=== PATIENT | female | born 1995 | race Caucasian/White ===

== ENCOUNTER 2024-12-10 07:49 | Outpatient (CLI) | payer OTHER ==
[2024-12-10 08:43] LABS: BASO % 0.2 % (0.1-1.2); EOS # 0.29 (0.04-0.54); EOS % 3.2 % (0.7-7.0); LYMPH # 1.90 (1.18-3.74); LYMPH % 21.1 % (19.3-53.1); MEAN PLATELET VOLUME 10.50 fl (9.4-12.4); MONO # 0.66 (0.24-0.82); MONO % 7.3 % (4.7-12.5); NEUT # 6.13 (1.56-6.13); NEUT % 68.1 % (34.0-71.1); RED CELL DISTRIBUTION WIDTH 15.6 % (11.6-14.4)
[2024-12-10 08:51] LABS: URINE APPEARANCE Clear; URINE BILIRRUBIN Negative (NEGATIVE); URINE BLOOD Trace; URINE COLOR Yellow; URINE GLUCOSE Negative (NEGATIVE); URINE KETONE Negative (NEGATIVE); URINE LEUKOCYTE Negative; URINE NITRATE Negative; URINE PROTEIN Trace (NEGATIVE); URINE UROBILINOGEN 1.0 E.U./dl
[2024-12-10 08:52] LABS: URINE BACTERIA 341.9 uL (0.0-1933); URINE EPITHELIAL CELLS 3.8 uL (0.0-38.8); URINE RBC 19.9 uL (0.0-20.8); URINE WBC 8.7 uL (0.0-23.2)
[2024-12-10 09:07] LABS: INR 1.01
[2024-12-10 09:10] LABS: COL EPI 139 SECONDS (82-175); URINE CAST 0.43 uL (0.0-1.40)
[2024-12-10 09:11] LABS: ALT/SGPT 15.0 U/L (12-78); AST/SGOT 8.0 U/L (15-37); BILIRUBIN TOTAL 0.25 mg/dL (0.3-1.2); BUN CREA RATIO 14.0 (7.0-25.0); CREATININE SERUM 0.79 mg/dL (0.55-1.02); GFR 86.04; GLOBULINA 3.8 G/DL (2.4-3.5); GLUCOSE FASTING 103.0 mg/dL (65-100); OSMOLALITY SERUM 277.0 MOSM/KG (275-295)
[2024-12-10 09:49] VITALS: BP 105/58
== END 2024-12-10 09:12 | disposition home or self-care (01) ==
LOC: RAD 07:49
PROVIDERS: ATTEND Orthopaedic Surgery
DX: Z76.89 Persons encountering health services in other specified circumstances (principal); D64.9 Anemia, unspecified; E88.9 Metabolic disorder, unspecified; D68.8 Other specified coagulation defects; N39.0 Urinary tract infection, site not specified; E11.8 Type 2 diabetes mellitus with unspecified complications; Z20.822 Contact with and (suspected) exposure to COVID-19; I10 Essential (primary) hypertension

== ENCOUNTER 2025-01-21 06:52 | Outpatient (CLI) | payer OTHER ==
[~2025-01-21] VITALS: Ht 160 cm; Wt 73.0 kg
[2025-01-21 07:42] LABS: BASO % 0.3 % (0.1-1.2); EOS # 0.33 (0.04-0.54); EOS % 3.6 % (0.7-7.0); LYMPH # 2.28 (1.18-3.74); LYMPH % 24.8 % (19.3-53.1); MEAN PLATELET VOLUME 10.10 fl (9.4-12.4); MONO # 0.73 (0.24-0.82); MONO % 8.0 % (4.7-12.5); NEUT # 5.78 (1.56-6.13); NEUT % 63.0 % (34.0-71.1); RED CELL DISTRIBUTION WIDTH 18.5 % (11.6-14.4)
[2025-01-21 07:51] LABS: URINE APPEARANCE Clear; URINE BILIRRUBIN Negative (NEGATIVE); URINE BLOOD Negative; URINE COLOR Yellow; URINE GLUCOSE Negative (NEGATIVE); URINE KETONE Negative (NEGATIVE); URINE LEUKOCYTE Moderate; URINE NITRATE Negative; URINE PROTEIN Negative (NEGATIVE); URINE UROBILINOGEN 1.0 E.U./dl
[2025-01-21 07:52] LABS: URINE BACTERIA 2852.3 uL (0.0-1933); URINE EPITHELIAL CELLS 96.4 uL (0.0-38.8); URINE RBC 29.1 uL (0.0-20.8); URINE WBC 21.3 uL (0.0-23.2)
[2025-01-21 08:15] LABS: URINE CAST 0.73 uL (0.0-1.40)
[2025-01-21 08:27] LABS: COL EPI 126 SECONDS (82-175)
[2025-01-21 08:37] LABS: ALT/SGPT 17.0 U/L (12-78); AST/SGOT 10.0 U/L (15-37); BILIRUBIN TOTAL 0.62 mg/dL (0.3-1.2); BUN CREA RATIO 11.0 (7.0-25.0); CREATININE SERUM 0.74 mg/dL (0.55-1.02); GFR 92.78; GLOBULINA 3.7 G/DL (2.4-3.5); GLUCOSE FASTING 93.0 mg/dL (65-100); OSMOLALITY SERUM 276.0 MOSM/KG (275-295)
[2025-01-21 08:39] VITALS: BP 107/66
[2025-01-21 08:42] LABS: INR 1.02
== END 2025-01-21 13:26 | disposition home or self-care (01) ==
LOC: LAB 06:52
PROVIDERS: ATTEND Orthopaedic Surgery
DX: D68.8 Other specified coagulation defects (principal); E88.9 Metabolic disorder, unspecified; D64.9 Anemia, unspecified; N39.0 Urinary tract infection, site not specified; Z22.322 Carrier or suspected carrier of Methicillin resistant Staphylococcus aureus; E11.9 Type 2 diabetes mellitus without complications; I10 Essential (primary) hypertension

== ENCOUNTER 2025-01-27 08:49 | Inpatient (IN) | payer OTHER ==
[~2025-01-27] VITALS: Ht 160 cm; Wt 73.0 kg
[2025-01-28] MEDS ORDERED: BUPIVACAINE HCL 30 ML VIAL IJ ONE (13:45)
[2025-01-28] MEDS ORDERED: KETOROLAC TROMETHAMINE 30 MG VIAL IV ONE (13:45)
[2025-01-28] MEDS ORDERED: EPINEPHRINE HCL/PF 1 MG/ML AMPUL IR ONE (14:00)
[2025-01-28] MEDS ORDERED: CEFAZOLIN SODIUM 1,000 MG VIAL IV SCH ×2 (14:00→17:00)
[2025-01-28] MEDS ORDERED: VANCOMYCIN HCL 1,000 MG VIAL IR ONE (14:00)
[2025-01-28] MEDS ORDERED: LIDOCAINE HCL 1%/EPINEPHRINE 20ML VIAL IJ ONE (14:00)
[2025-01-28] MEDS ORDERED: MORPHINE SULFATE 4 MG/ML CARTRIDGE IV ONE (14:00)
[2025-01-28] MEDS ORDERED: TRANEXAMIC ACID 100MG/1ML (1000MG) AMPUL IV ONE ×2 (14:00)
[2025-01-28] MEDS ORDERED: SUGAMMADEX SODIUM 200 MG/2 ML VIAL IV ONE (15:00)
[2025-01-28] MEDS ORDERED: PROMETHAZINE HCL 50 MG/ML AMPUL IM PRN (16:15)
[2025-01-28] MEDS ORDERED: ONDANSETRON 4 MG TAB.RAPDIS PO PRN (16:15)
[2025-01-28] MEDS ORDERED: TRAMADOL HCL 50 MG TABLET PO PRN (16:15)
[2025-01-28] MEDS ORDERED: ONDANSETRON HCL 2 MG/ML VIAL IV PRN (16:15)
[2025-01-28] MEDS ORDERED: MEPERIDINE HCL/PF 50 MG/ML VIAL IM PRN (16:15)
[2025-01-28] MEDS ORDERED: SODIUM CHLORIDE 0.45 % 1,000 ML IV SCH (16:15)
[2025-01-28] MEDS ORDERED: CELECOXIB 200 MG CAPSULE PO SCH (17:00)
[2025-01-28] MEDS ORDERED: PANTOPRAZOLE SODIUM 40 MG TABLET.DR PO SCH (17:00)
[2025-01-28] MEDS ORDERED: ACETAMINOPHEN 325 MG TABLET PO SCH (17:00)
[2025-01-28 18:49] VITALS: BP 99/65; O2SAT 98
[2025-01-28] MEDS ORDERED: KETOROLAC TROMETHAMINE 10 MG TABLET PO SCH (21:00)
[2025-01-28 23:00] VITALS: BP 100/59; O2SAT 99
[2025-01-29 07:12] LABS: BASO % 0.1 % (0.1-1.2); EOS # 0.02 (0.04-0.54); EOS % 0.1 % (0.7-7.0); LYMPH # 1.67 (1.18-3.74); LYMPH % 10.3 % (19.3-53.1); MEAN PLATELET VOLUME 11.00 fl (9.4-12.4); MONO # 1.13 (0.24-0.82); MONO % 7.0 % (4.7-12.5); NEUT # 13.35 (1.56-6.13); NEUT % 82.1 % (34.0-71.1); RED CELL DISTRIBUTION WIDTH 19.1 % (11.6-14.4)
[2025-01-29] MEDS ORDERED: RIVAROXABAN 10 MG TAB PO SCH (09:00)
[2025-01-29 13:59] VITALS: BP 104/66; O2SAT 98
[2025-01-29] MEDS ORDERED: SOD FERRIC GLUC COMPLX/SUCROSE 62.5 MG in 0.9 % SODIUM CHLORIDE 50 ML IV NR (14:30)
[2025-01-29 17:51] VITALS: BP 98/59; O2SAT 99
[2025-01-30 01:48] VITALS: BP 103/50; O2SAT 100
[2025-01-30 06:56] LABS: BASO % 0.1 % (0.1-1.2); EOS # 0.39 (0.04-0.54); EOS % 2.8 % (0.7-7.0); LYMPH # 1.36 (1.18-3.74); LYMPH % 9.7 % (19.3-53.1); MEAN PLATELET VOLUME 11.00 fl (9.4-12.4); MONO # 1.05 (0.24-0.82); MONO % 7.5 % (4.7-12.5); NEUT # 11.10 (1.56-6.13); NEUT % 79.4 % (34.0-71.1); RED CELL DISTRIBUTION WIDTH 19.5 % (11.6-14.4)
[2025-01-30 08:00] VITALS: BP 100/63; O2SAT 98
[2025-01-30] MEDS ORDERED: SOD FERRIC GLUC COMPLX/SUCROSE 62.5 MG in 0.9 % SODIUM CHLORIDE 50 ML IV SCH (09:00)
[2025-01-30] MEDS ORDERED: SENNA/DOCUSATE SODIUM 1 TAB TABLET PO SCH (09:00)
[2025-01-30 09:22] LABS: BASO % 0.3 % (0.1-1.2); EOS # 0.02 (0.04-0.54); EOS % 0.1 % (0.7-7.0); LYMPH # 0.73 (1.18-3.74); LYMPH % 4.9 % (19.3-53.1); MEAN PLATELET VOLUME 11.70 fl (9.4-12.4); MONO # 1.43 (0.24-0.82); MONO % 9.6 % (4.7-12.5); NEUT # 12.54 (1.56-6.13); NEUT % 84.7 % (34.0-71.1); RED CELL DISTRIBUTION WIDTH 14.8 % (11.6-14.4)
[2025-01-30 13:05] LABS: BASO % 0.1 % (0.1-1.2); EOS # 0.29 (0.04-0.54); EOS % 2.0 % (0.7-7.0); LYMPH # 1.08 (1.18-3.74); LYMPH % 7.5 % (19.3-53.1); MEAN PLATELET VOLUME 11.00 fl (9.4-12.4); MONO # 0.59 (0.24-0.82); MONO % 4.1 % (4.7-12.5); NEUT # 12.28 (1.56-6.13); NEUT % 85.7 % (34.0-71.1)
[2025-01-30 13:27] LABS: RED CELL DISTRIBUTION WIDTH 19.7 % (11.6-14.4)
== END 2025-01-30 20:51 | disposition home or self-care (01) | DRG 470 ==
LOC: SURH 01-28 08:45 → SURG 01-28 10:45 → O/R 01-28 10:45 → SURH 01-28 11:15 → CIR.AMB 01-28 15:17 → EDSTATUS 01-28 15:18 → SURH 01-28 15:18 → SURG 01-28 15:29
PROVIDERS: Internal Medicine; ADMIT Orthopaedic Surgery; ATTEND Orthopaedic Surgery
PROC: 0SRC0JZ Replacement of Right Knee Joint with Synthetic Substitute, Open Approach (ICD-10-PCS; principal; 2025-01-28 11:15)
DX: M16.11 Unilateral primary osteoarthritis, right hip (principal); D62 Acute posthemorrhagic anemia; Z96.641 Presence of right artificial hip joint